=== PATIENT | male | born 1965 | race Caucasian/White ===

== ENCOUNTER → 2016-12-14 | Outpatient (CLI) | payer OTHER | LOC: CAT 09:30 | DX: N20.0 Calculus of kidney (principal); N13.30 Unspecified hydronephrosis ==

== ENCOUNTER → 2019-03-20 | Outpatient (CLI) | payer OTHER ==
--- NOTE | 2019-03-20 12:32 | EXE ---
[facility] [address] [place] [address] STRESS ECHOCARDIOGRAM Name: HUIZARANIL Moyer Room #: REG Terry#: [id number] Admission: 03/20/19 Attend Phys: Geremias Jones, Discharge: Date of : 65 Report #: [id number] THIS REPORT FOR: //name// APPROVED REPORT Study performed: 03/20/2019 10:07:54 Exam: Stress Echocardiogram Indication: Hypertension Patient Location: Out-Patient Stress Nurse: Kym Lozano RN Room #: Echo lab 2 Status: routine Ht: 5 ft 10 in HR: 96 bpm BP: 124/78 mmHg Rhythm: NSR Medical History Medical History: HTN, Hyperlipidemia Cardiac Risk Factors: HTN, Hyperlipidemia Exercise History: Sedentary Procedure The patient underwent an Exercise Stress Test using the Nicko Protocol. Blood pressure, heart rate, and EKG were monitored. An Echocardiogram was performed by tree trimming line technician in four stages in quad fashion. At peak stress, four selected images were obtained and placed side by side with resting images for comparison. Stress Test Details Stress Test: Exercise stress testing was performed using a Nicko protocol. HR Resting HR: 96 bpm Max Heart Rate (APMHR): 167 bpm Max HR Achieved: 184 bpm Target HR (85% APMHR): 141 bpm % of APMHR: 110 Recovery HR: 116 bpm HR response to stress: Normal HR response to stress BP Resting BP: 124/78 mmHg Max BP: 178/86 mmHg Recovery BP: 134/82 mmHg BP response to stress: Normal blood pressure response to [facility] [address] [place] [address] STRESS ECHOCARDIOGRAM Name: ANIL HUIZAR Room #: [id number] Admission: 03/20/19 Attend Phys: Geremias Jones, Discharge: Date of : 65 Report #: [id number] stress. ECG Resting ECG: Sinus Rhythm Stress ECG: Sinus Rhythm, nonspecific ST-T abnormalities ST Change: Non-ischemic Clinical Reason for Termination: Maximal effort Exercise duration: 8 min 11 sec Highest Stage Achieved: Stage 3: 3.4 mph at 14% grade. Exercise capacity: 10.4 METs Overall Exercise Capacity for Age: Good Pre-Stress Echo The resting Echocardiogram showed normal left ventricular contractility with an estimated Ejection Fraction of about >55%. The resting echocardiogram demonstrated normal wall motion in all wall segments. Post-Stress Echo The stress Echocardiogram showed normal left ventricular contractility with an estimated Ejection Fraction of about 65-70%. Compared to rest, there were no stress-induced wall motion abnormalities. Clinical No clinical or ECG evidence for ischemia. Conclusion Clinical Response: Non-ischemic Exercise Capacity: Average Stress ECG Response: Non-ischemic Stress Echo Images: Non-ischemic The left ventricle is normal in size and wall thickness in both the rest and stress images. No prior study available for comparison. Other Information Study Quality: Adequate <Conclusion> [facility] [address] [place] [address] STRESS ECHOCARDIOGRAM Name: ANIL HUIZAR Room #: REG [facility]#: [id number] Admission: 03/20/19 Attend Phys: Geremias Jones, Discharge: Date of : 65 Report #: [id number] The left ventricle is normal in size and wall thickness in both the rest and stress images. <ELECTRONICALLY SIGNED> By: Gaetano Waters MD 03/20/19 [id number] Gaetano Waters MD /INF
== END ==
LOC: CV 03-13 15:03
DX: E83.52 Hypercalcemia (principal); I10 Essential (primary) hypertension